=== PATIENT | female | born 1945 | race African-American/Black ===

== ENCOUNTER 2021-08-18 13:06 | Emergency (ER) | payer BC, MEDICARE ==
[~2021-08-18] VITALS: Ht 167.6 cm; Wt 73.0 kg
[2021-08-18 13:12] VITALS: BP 139/107
[2021-08-18] MEDS ORDERED: KETOROLAC 60MG/2ML VIAL IM ONE (17:00)
== END 2021-08-18 18:15 | disposition home or self-care (01) ==
LOC: ER 13:06
DX: J02.9 Acute pharyngitis, unspecified (principal); I10 Essential (primary) hypertension
CPT/HCPCS: 70360; 96372; 99283; J1885

== ENCOUNTER 2024-08-25 16:43 | Emergency (ER) | payer BC, MEDICARE ==
[2024-08-25] MEDS ORDERED: CLIN-194 MT (18:00)
[2024-08-25 18:15] VITALS: BP 142/79; PULSE 64; RESP 14; TEMP 36.5; O2SAT 99
== END 2024-08-25 18:20 | disposition home or self-care (01) ==
LOC: ER 16:43
DX: L03.213 Periorbital cellulitis (principal); E11.9 Type 2 diabetes mellitus without complications; I10 Essential (primary) hypertension; Z90.710 Acquired absence of both cervix and uterus
CPT/HCPCS: 99283